=== PATIENT | female | born 1960 | race American Indian/Alaskan Native ===

== ENCOUNTER 2018-08-15 12:46 | Outpatient (CLI) | payer BC ==
--- NOTE | 2018-08-15 14:08 | Mammography Report ---
BONE DEXA. History: Postmenopausal. Procedure: 2 site bone densitometry performed on a Hologic scanner. Comparison: None Findings: The BMD of the lumbar spine is 0.924 gm/cm2 with a T-score of -1.1 and a Z score of -0.5.. The bone mineral density (BMD) of the left femoral neck is 0.851 gm/cm2 with a T-score of 0. The BMD of the total left hip is 0.910 gm/cm2 with a T-score of -0.3 and a T score of 0. Impression: WHO Classification: Normal based on lumbar spine measurements. WHO classification: Normal based onleft hip measurements. The FRAX 10 year fracture probability for a major osteoporotic fracture is 2.3%. The FRAX 10 year fracture probability for hip fracture is less than 0.1%. Note:FRAX version 3.01. Fracture probability calculated for an untreated patient. Fracture probabilit y may be lower if the patient has received treatment. RECOMMENDATION: Clinical correlation and routine screening. Definitions: BMD = Bone Mineral Density T score = BMD related to mean peak bone mass of young adult ([place] expressed an standard deviation) Z score = Age-matched BMD expressed in SD World health organization (WHO) diagnostic criteria: Normal: T score greater than -1 SD. Osteopenia: T score between - SD and -2.4 SD. Osteoporosis: T score -2.5 SD or below Note: BMD is not the only risk factor for fracture; also consider factors such as the patient's age, risk of falling, previous osteoporotic fracture, family history of osteoporotic fractures, smoking st atus and low body weight. All treatment decisions require clinical judgment and consideration of individual patient factors inc luding patient preferences, comorbidities, previous drug use and risk factors not captured in the FRA X model (e.g. Frailty, falls, vitamin D deficiency, increased bone turnover, interval significant dec line in BMD). A more detailed DEXA Bone Densitometry report is available upon request. Signer Name: Ashutosh Olivera MD Signed: 08/15/2018 2:04 PM Workstation Name: [id number]
--- NOTE | 2018-08-15 16:02 | Mammography Report ---
BILATERAL DIGITAL SCREENING MAMMOGRAMS WITH CAD INDICATION: Routine. COMPARISONS: None. FINDINGS: Craniocaudal and mediolateral oblique views of both breasts were obtained using 2-D digital acquisition.In addition to standard review, the examination was analyzed for possible abnormalities using a computer-assisted detection device (iCAD). The breasts are almost entirely fatty. A left outer focal asymmetry requires additional imaging. No architectural distortion or suspicious c alcifications. The right breast is negative. IMPRESSION: Left asymmetry requires additional imaging. Recommend recall for left spot magnification views and le ft breast ultrasound if needed. BI-RADS CATEGORY 0: INCOMPLETE - NEED ADDITIONAL IMAGING EVALUATION Information is entered into a reminder system for a target due date for the next mammogram. The resul ts and recommendations were sent to the patient by mail. Signer Name: Ashutosh Olivera MD Signed: 08/15/2018 3:58 PM Workstation Name: [id number]
== END 2018-08-15 12:47 | disposition home or self-care (01) ==
LOC: MAMMO 12:46
PROVIDERS: ATTEND Family Medicine
DX: Z12.31 Encounter for screening mammogram for malignant neoplasm of breast (principal); Z78.0 Asymptomatic menopausal state
CPT/HCPCS: 77067; 77080

== ENCOUNTER 2018-08-31 12:43 | Outpatient (CLI) | payer BC ==
--- NOTE | 2018-08-31 13:26 | Mammography Report ---
LEFT DIGITAL DIAGNOSTIC MAMMOGRAM INDICATION: Recalled for a focal asymmetry. TECHNIQUE: Digital left mammographic imaging was performed. Magnification views were obtained. COMPARISON: 08/15/2018 FINDINGS: Breast Density: Fatty Additional spot magnification and ML views were performed and are negative. IMPRESSION: Mammographic evidence of malignancy. BI-RADS Category 1: Negative. Recommend routine screening mammography in one year. A "normal" or negative report should not discourage follow up or biopsy of a clinically significant f inding. A written summary of these findings will be mailed to the patient. The patient will be entered into a mammography reporting system which will generate a reminder letter for the patient's next appointmen t at the appropriate interval. FURTHER INFORMATION: According to the [employer], yearly mammograms are recommend ed starting at age 40 and continuing as long as a woman is in good health. Breast MRI is recommended for women with an approximately 20-25% or greater lifetime risk of breast cancer, including women wi th a strong family history of breast or ovarian cancer and women who have been treated for Hodgkin's disease. Signer Name: Ashutosh Olivera MD Signed: 08/31/2018 1:21 PM Workstation Name: [id number]
== END 2018-08-31 12:44 | disposition home or self-care (01) ==
LOC: MAMMO 12:43
PROVIDERS: ATTEND Physician Assistant
DX: R92.8 Other abnormal and inconclusive findings on diagnostic imaging of breast (principal)

== ENCOUNTER 2019-11-23 08:25 | Outpatient (CLI) | payer BC ==
--- NOTE | 2019-11-23 11:44 | Mammography Report ---
DIGITAL SCREENING MAMMOGRAM WITH CAD, 11/23/2019 INDICATION: Routine screening mammography. TECHNIQUE: Digital bilateral 2D mammography was obtained in the craniocaudal and mediolateral obliq ue projections. This examination was interpreted with the benefit of Computer-Aided Detection analysi s. COMPARISON: 08/31/2018, 08/15/2018, 07/07/2013 FINDINGS: Breast Density: The breasts are almost entirely fatty. There is no evidence of dominant mass, suspicious calcifications or architectural distortion in eithe r breast. IMPRESSION: Follow up recommendation: Routine yearly BI-RADS Category 1: Negative. A "normal" or negative report should not discourage follow up or biopsy of a clinically significant f inding. A written summary of these findings will be mailed to the patient. The patient will be entered into a mammography reporting system which will generate a reminder letter for the patient's next appointmen t at the appropriate interval. The [employer] recommends yearly mammograms starting at age 40 and continuing as l genie as a woman is in good health. Breast MRI is recommended for women with an approximate 20-25% or greater lifetime risk of breast cancer, including women with a strong family history of breast or ova desiree cancer or who have been treated for Hodgkin's disease. Signer Name: Biju Benitez MD Signed: 11/23/2019 11:40 AM Workstation Name: [id number]
== END 2019-11-23 08:26 | disposition home or self-care (01) ==
LOC: MAMMO 08:25
PROVIDERS: ATTEND Family Medicine
DX: Z12.31 Encounter for screening mammogram for malignant neoplasm of breast (principal)
CPT/HCPCS: 77067

== ENCOUNTER 2021-05-15 11:29 | Outpatient (CLI) | payer BC ==
--- NOTE | 2021-05-16 13:30 | Mammography Report ---
DIGITAL SCREENING MAMMOGRAM WITH CAD, 05/15/2021 CLINICAL INFORMATION / INDICATION: Routine screening mammography. SCREENING MAMMOGRAM TECHNIQUE: Digital bilateral 2D mammography was obtained in the craniocaudal and mediolateral obliqu e projections. This examination was interpreted with the benefit of Computer-Aided Detection analysis . COMPARISON: 07/07/2013 through 11/23/2019. FINDINGS: Breast Density: The breasts are almost entirely fatty. No dominant mass, suspicious calcifications, or architectural distortion in either breast. A small benign intramammary lymph node in the right lateral breast posteriorly is stable. IMPRESSION: No mammographic evidence of malignancy. Follow up recommendation: Routine yearly BI-RADS Category 2: BENIGN. A "normal" or negative report should not discourage follow up or biopsy of a clinically significant f inding. A written summary of these findings will be mailed to the patient. The patient will be entered into a mammography reporting system which will generate a reminder letter for the patient's next appointmen t at the appropriate interval. The [employer] recommends yearly mammograms starting at age 40 and continuing as l genie as a woman is in good health. Breast MRI is recommended for women with an approximate 20-25% or greater lifetime risk of breast cancer, including women with a strong family history of breast or ova desiree cancer or who have been treated for Hodgkin's disease. Signer Name: Rha Badillo MD Signed: 05/16/2021 1:25 PM Workstation Name: [id number]
== END 2021-05-15 11:30 | disposition home or self-care (01) ==
LOC: MAMMO 11:29
PROVIDERS: ATTEND Family Medicine
DX: Z12.31 Encounter for screening mammogram for malignant neoplasm of breast (principal)
CPT/HCPCS: 77067